=== PATIENT | female | born 1970 | race Two or more races ===

== ENCOUNTER 2019-07-06 09:20 | Outpatient (RCR) | payer OTHER | END 2019-07-23 | disposition home or self-care (01) | LOC: WCC 09:20 | DX: T21.2 Burn of second degree of trunk (principal); T21.21XS Burn of second degree of chest wall, sequela; Z90.89 Acquired absence of other organs; E78.00 Pure hypercholesterolemia, unspecified; K21.9 Gastro-esophageal reflux disease without esophagitis; I10 Essential (primary) hypertension; E11.9 Type 2 diabetes mellitus without complications ==